=== PATIENT | male | born 1940 | race Caucasian/White ===

== ENCOUNTER 2016-12-28 10:31 | Inpatient (IN) | payer MEDICARE, OTHER ==
[~2016-12-28] VITALS: Ht 177.8 cm; Wt 69.9 kg
[2016-12-28] VITALS (17 sets, daily range): BP systolic 115–152; BP diastolic 47–100
[2016-12-28] MEDS ORDERED: IV SET PRIMARY PUMP SET 1 EA INFUS.SET MC ONE ×4 (10:38→16:57)
[2016-12-28] MEDS ORDERED: MIDAZOLAM HCL 2 MG/2ML VIAL ONE (10:38)
[2016-12-28] MEDS ORDERED: IV NS 0.9% 1,000 ML ONE ×2 (10:38→12:14)
--- NOTE | 2016-12-28 10:40 | NUR ---
BIB [facility] 89 FROM HOME, WORSENING SOB,TRI-PODDING,DIMINISHED BS, ON CPAP ENROUTE. MD AT BS FOR EVAL. PT AAOX3. RT AT BS. VSS. SAFETY AND COMFORT MEASURES PROVIDED. WILL MONITOR.
[2016-12-28] MEDS ORDERED: IV NS 0.9% 1,000 ML IV ONE (10:43)
[2016-12-28] MEDS ORDERED: Magnesium 1GM/D5W 100ML PREMIX 200 ML IV ONE ×2 (10:43→10:49)
[2016-12-28] MEDS ORDERED: methylPREDNISolone SOD SUCC 125 MG/2ML VIAL ONE (10:48)
[2016-12-28] MEDS ORDERED: IPRATROPIUM NEB FS 0.5 MG/2.5 ML AMPUL.NEB ONE (10:50)
[2016-12-28] MEDS ORDERED: ALBUTEROL FS 2.5 MG/3 ML VIAL.NEB ONE (10:50)
[2016-12-28 10:57] LABS: BASOPHILS # (AUTO) 0.2 /CMM (0.0-0.2); BASOPHILS % (AUTO) 1.9 % (0.0-2.0); EOSINOPHILS # (AUTO) 0.1 /CMM (0.0-0.7); EOSINOPHILS % (AUTO) 0.5 % (0.0-6.0); HEMATOCRIT 37 % (39-51); HEMOGLOBIN 12.3 g/dL (13.5-17.5); LYMPHOCYTES % (AUTO) 9.5 % (20.0-44.0); MEAN CORPUSCULAR HEMOGLOBIN 31 PG (26.0-33.0); MEAN CORPUSCULAR HGB CONC 33 g/dl (31.0-36.0); MEAN CORPUSCULAR VOLUME 93 fL (80-96); MONOCYTES # (AUTO) 0.3 /CMM (0.1-1.30); MONOCYTES % (AUTO) 3.3 % (2.0-12.0); NEUTROPHILS # (AUTO) 8.6 /CMM (1.8-8.9); NEUTROPHILS % (AUTO) 84.8 % (43.0-81.0); PLATELET COUNT (AUTO) 226 /CMM (150-450); RDW COEFFICIENT OF VARIATION 18.6 (11.5-15.0); RED BLOOD CELL COUNT(AUTO) 3.98 MIL/uL (4.5-6.0); WHITE BLOOD COUNT (AUTO) 10.2 K/uL (4.3-11.0)
[2016-12-28] MEDS ORDERED: ALBUTEROL FS 2.5 MG/3 ML VIAL.NEB CONTNEB ONE (11:00)
[2016-12-28] MEDS ORDERED: methylPREDNISolone SOD SUCC 125 MG/2ML VIAL IV ONE (11:00)
[2016-12-28] MEDS ORDERED: IPRATROPIUM NEB FS 0.5 MG/2.5 ML AMPUL.NEB NEB ONE (11:00)
[2016-12-28 11:04] LABS: CALCIUM, SERUM 8.5 mg/dL (8.5-10.1); CARBON DIOXIDE 29 mmol/L (21-32); CHLORIDE 105 mmol/L (98-107); GLUCOSE 80 mg/dL (74-106); POTASSIUM 4.6 mmol/L (3.5-5.1); SODIUM SERUM 141 mmol/L (136-145); UREA NITROGEN, BLOOD 22 mg/dL (7-18)
[2016-12-28 11:11] LABS: TROPONIN I < 0.017 ng/mL (0.00-0.056)
--- NOTE | 2016-12-28 11:15 | NUR ---
IV ACCESS STARTED. BLOOD DRAWN FOR LABS. PT MEDICATED ORDERED.
[2016-12-28 11:16] LABS: ALANINE AMINOTRANSFERASE 58 U/L (12-78); ALBUMIN 3.2 g/dL (3.4-5.0); ALKALINE PHOSPHATASE 78 U/L (46-116); ASPARTATE AMINOTRANSFERASE 25 U/L (15-37); B-TYPE NATRIURETIC PEPTIDE 575 PG/ML (0-125); BILIRUBIN,DIRECT 0.1 mg/dL (0.0-0.2); BILIRUBIN,TOTAL 0.5 mg/dL (0.2-1.0); TOTAL PROTEIN, SERUM 6.7 g/dL (6.4-8.2)
[2016-12-28 11:18] LABS: LACTIC ACID 3.2 mmol/L (0.4-2.0)
[2016-12-28] MEDS ORDERED: CT SWABBABLE VALVE TRANS SET 1 EA INFUS.SET MC ONE (11:18)
[2016-12-28] MEDS ORDERED: IOHEXOL-350 100 ML VIAL IV ONE (11:18)
[2016-12-28] MEDS ORDERED: IV NS 0.9% 250 ML IV ONE (11:18)
[2016-12-28 11:30] LABS: ANISOCYTOSIS 2+; EOSINOPHILS % (MANUAL) 2 % (0-4); LYMPHOCYTES % (MANUAL) 21 % (16-48); MONOCYTES % (MANUAL) 4 % (0-11.0); NEUTROPHILS % (MANUAL) 73 (42-76); PLATELET ESTIMATE ADEQUATE
--- NOTE | 2016-12-28 12:40 | NUR ---
Patient is resting comfortably in bed with eyes closed. Easily aroused. VSS
[2016-12-28 13:11] LABS: ABG BASE EXCESS 1.4 mmol/L; ABG OXYGEN SATURATION 98.9 % (92.0-98.5); ABG PCO2 47.9 mmHg (35.0-45.0); ABG PH 7.371 (7.350-7.450); ABG PO2 243.5 mmHg (75.0-100.0); ABG TOTAL HEMOGLOBIN 11.4 G/dL (13.5-18.0); AaDO2 167.9 mmHg; COHb 0.7 % (0.5-1.5); MetHb 0.2 % (0.0-1.5); SITE, ABG Right Radial
--- NOTE | 2016-12-28 13:12 | NUR ---
RT NOTE: ABG RESULTS REPORTED TO . PER DR. FARRIS FI02 TITRATED DOWN TO 40%. PER MD KEEP PATIENT ON BIPAP AND MAINTAIN SP02 ABOVE 94%. CHANGE MADE. PATIENT IS TOLERATING THERAPY WELL AND STATES HE FEELS BETTER. WILL CONTINUE TO MONITOR.
[2016-12-28] MEDS ORDERED: ACETAMINOPHEN 325 MG TABLET PO PRN (13:30)
[2016-12-28] MEDS ORDERED: ONDANSETRON HCL/PF 4 MG/2 ML VIAL IVP PRN (13:30)
[2016-12-28] MEDS ORDERED: MAG HYDROX/AL HYDROX/SIMETH 30 ML UDC PO PRN (13:30)
[2016-12-28] MEDS ORDERED: ZOLPIDEM TARTRATE 5 MG TABLET PO PRN (13:30)
[2016-12-28] MEDS ORDERED: Z GUARD REMEDY 2 OZ OINT TP PRN (13:30)
[2016-12-28 14:06] LABS: INR 1.02 (0.87-1.13); PROTHROMBIN TIME 10.9 SECS (9.5-12.7)
--- NOTE | 2016-12-28 14:38 | NUR ---
REPORT GIVEN TO STEPHEN WHITESIDE FOR ICU ROOM, 254
--- NOTE | 2016-12-28 15:01 | NUR ---
Patient transported to ICU and placed back on BIPAP. Per Dr. Boles ABG needed for patient at this time. Addendum: 12/28/16 at 1507 by USHA GOMEZ RT CORRECTION: PER NO ABG NEEDED AT THIS TIME. ORDER CANCELLED PER MD ORDER.
[2016-12-28] MEDS ORDERED: OXYC5CAP3 PO (15:05)
[2016-12-28] MEDS ORDERED: HYDR-552 PO (15:05)
[2016-12-28] MEDS ORDERED: SIMV10TA6 PO (15:05)
[2016-12-28] MEDS ORDERED: PRED1TAB PO (15:05)
[2016-12-28] MEDS ORDERED: CLOP75TA2 PO (15:05)
[2016-12-28] MEDS ORDERED: CHOL100040 PO (15:05)
[2016-12-28] MEDS: MORPHINE SULFATE INJ 2 MG/ML DISP.SYRIN IV PRN (15:38)
[2016-12-28] MEDS: ALBUTEROL HALF STRENGTH 1.25 MG/3 ML VIAL.NEB NEB SCH ×3 (16:05→23:16)
[2016-12-28] MEDS: IPRATROPIUM NEB FS 0.5 MG/2.5 ML AMPUL.NEB NEB SCH ×3 (16:05→23:16)
[2016-12-28] MEDS: ACETYLCYSTEINE 10% SOLN 400 MG/4 ML VIAL NEB SCH ×2 (16:05→23:16)
--- NOTE | 2016-12-28 16:40 | NUR ---
ICU/RN-RECEIVED PT. FROM ASSEMBLED WOOD PRODUCTS REPAIRERSTEVO LOUISE, AWAKE, ALERT ORIENTED X4. GABONESE AND UZBEK SPEAKING W/ LIMITED LIBYAN.BREATHING COMES EASY, ON BIPAP.SATS.-99%, NOT IN ANY DISTRESS. EKG SR W/ HR-84/MIN. BP-132/73. PT. IS NPO. WILL START ALL SCHEDULED MEDS. DULCE. NO SKIN BREAKDOWN NOTED.DENIES PAIN OR DISCOMFORT AT THIS TIME.AFEBRILE.
[2016-12-28] MEDS ORDERED: SECONDARY IV SET 1 EA INFUS.SET MC ONE (16:58)
[2016-12-28] MEDS: methylPREDNISolone SOD SUCC 125 MG/2ML VIAL IV SCH ×2 (17:04→21:22)
[2016-12-28] MEDS: LEVOFLOXACIN 500 MG /D5W 100ML 100 ML IV SCH (17:05)
[2016-12-28] MEDS: IV D5/0.45 NACL 1,000 ML IV PRN (17:05)
[2016-12-28] MEDS: DOCUSATE SODIUM 100 MG CAPSULE PO SCH (17:08)
[2016-12-28] MEDS: CLOPIDOGREL BISULFATE 75 MG TABLET PO SCH (20:00)
--- NOTE | 2016-12-28 20:07 | NUR ---
PT WANTED TO TAKE A BRAKE OFF BIPAP. PT TAKEN OFF BIPAP PLACED ON 3L NC. RN AWARE. PT O2 SAT IS 99% NO DISTRESS. WILL CONTINUE TO MONITOR.
--- NOTE | 2016-12-28 20:26 | NUR ---
received pt from day shift, a/o x4, follows commands, SR, off of bipap since 20:00, on NC at 3L sat 98% no SOB verbalized, NPO, urinates in urinal, v/s stable, no pain, pt turns and repositions by himself.
[2016-12-28] MEDS: SIMVASTATIN 20 MG TABLET PO SCH (21:22)
[2016-12-28 23:39] LABS: APPEARANCE,URINE CLEAR (CLEAR); BILIRUBIN,URINE NEGATIVE (NEGATIVE); BLOOD, URINE NEGATIVE Ery/uL (NEGATIVE); COLOR,URINE YELLOW (YELLOW); KETONES,URINE NEGATIVE (NEGATIVE); LEUKOCYTE ESTERASE ,URINE NEGATIVE (NEGATIVE); NITRITE, URINE NEGATIVE (NEGATIVE); PROTEIN,URINE NEGATIVE (NEGATIVE); UGLUCOSE NEGATIVE (NEGATIVE); UROBILINOGEN,URINE 0.2 EU/dL (0.2)
[2016-12-29] VITALS (24 sets, daily range): BP systolic 108–150; BP diastolic 57–88
--- NOTE | 2016-12-29 00:28 | NUR ---
pt is resting in the bed, on NC at 3L, sat well, v/s stable, no pain.
[2016-12-29] MEDS: ALBUTEROL HALF STRENGTH 1.25 MG/3 ML VIAL.NEB NEB SCH ×6 (03:15→23:17)
[2016-12-29] MEDS: IPRATROPIUM NEB FS 0.5 MG/2.5 ML AMPUL.NEB NEB SCH ×6 (03:15→23:17)
--- NOTE | 2016-12-29 04:21 | NUR ---
pt is resting in the bed, no acute distress overnight, on NC at 3L, sat well, v/s stable, no pain, pt cleaned and changed.
[2016-12-29] MEDS: methylPREDNISolone SOD SUCC 125 MG/2ML VIAL IV SCH ×3 (04:31→21:20)
[2016-12-29] MEDS: MORPHINE SULFATE INJ 2 MG/ML DISP.SYRIN IV PRN ×2 (04:38→21:34)
[2016-12-29 05:22] LABS: EOSINOPHILS % (AUTO) 0.1 % (0.0-6.0); HEMATOCRIT 33 % (39-51); HEMOGLOBIN 10.7 g/dL (13.5-17.5); LYMPHOCYTES # (AUTO) 0.3 /CMM (0.8-4.8); LYMPHOCYTES % (AUTO) 5.1 % (20.0-44.0); MEAN CORPUSCULAR HEMOGLOBIN 31 PG (26.0-33.0); MEAN CORPUSCULAR HGB CONC 33 g/dl (31.0-36.0); MEAN CORPUSCULAR VOLUME 95 fL (80-96); MONOCYTES # (AUTO) 0.2 /CMM (0.1-1.30); MONOCYTES % (AUTO) 2.5 % (2.0-12.0); NEUTROPHILS # (AUTO) 5.7 /CMM (1.8-8.9); NEUTROPHILS % (AUTO) 92.3 % (43.0-81.0); PLATELET COUNT (AUTO) 231 /CMM (150-450); RDW COEFFICIENT OF VARIATION 20.2 (11.5-15.0); RED BLOOD CELL COUNT(AUTO) 3.47 MIL/uL (4.5-6.0); RETICULOCYTE COUNT 2.5 % (0.6-2.5); WHITE BLOOD COUNT (AUTO) 6.1 K/uL (4.3-11.0)
[2016-12-29 05:47] LABS: INR 1.05 (0.87-1.13); PROTHROMBIN TIME 11.3 SECS (9.5-12.7)
[2016-12-29 05:50] LABS: THYROID STIMULATING HORMONE 0.197 uIU/mL (0.358-3.74)
[2016-12-29 05:54] LABS: ALBUMIN 2.7 g/dL (3.4-5.0); BILIRUBIN,TOTAL 0.6 mg/dL (0.2-1.0); CALCIUM, SERUM 7.7 mg/dL (8.5-10.1); CREATININE 0.9 mg/dL (0.6-1.3); MAGNESIUM 2.3 mg/dL (1.8-2.4); PHOSPHORUS 4.3 mg/dL (2.5-4.9); POTASSIUM 4.6 mmol/L (3.5-5.1); TOTAL PROTEIN, SERUM 5.8 g/dL (6.4-8.2)
[2016-12-29 06:07] LABS: BAND % (MANUAL) 6 % (0.0-5.0); LYMPHOCYTES % (MANUAL) 4 % (16-48); MONOCYTES % (MANUAL) 8 % (0-11.0); NEUTROPHILS % (MANUAL) 82 (42-76)
[2016-12-29 06:08] LABS: ANISOCYTOSIS 2+; PLATELET ESTIMATE ADEQUATE
[2016-12-29] MEDS: IV D5/0.45 NACL 1,000 ML IV PRN (07:26)
[2016-12-29] MEDS: ACETYLCYSTEINE 10% SOLN 400 MG/4 ML VIAL NEB SCH ×3 (07:56→23:17)
[2016-12-29] MEDS: CLOPIDOGREL BISULFATE 75 MG TABLET PO SCH (08:29)
[2016-12-29] MEDS: DOCUSATE SODIUM 100 MG CAPSULE PO SCH ×2 (08:29→16:25)
[2016-12-29] MEDS: CHOLECALCIFEROL (VITAMIN D 3) 400 UNIT TABLET PO SCH (08:29)
[2016-12-29] MEDS: PANTOPRAZOLE 40 MG VIAL IV SCH (08:29)
--- NOTE | 2016-12-29 09:15 | NUR ---
DR. MUKHERJEE ON THE UNIT TO EVAL PT. ORDERS ONE TIME DOSE OF LASIX 40MG DUE AFTER LUNG AUSCULTATION. ORDERS TO DC IVF AND START ON DIET, PT PASSED SWALLOW EVAL, MECHANICAL SOFT RECOMMENDED BY SPEECH THERAPIST BECAUSE HE HAS DENTURES. DR. MUKHERJEE STATES TO KEEP IN ICU FOR NOW.
[2016-12-29 09:16] LABS: ABG OXYGEN SATURATION 93.9 % (92.0-98.5); ABG PCO2 40.5 mmHg (35.0-45.0); ABG PO2 73.5 mmHg (75.0-100.0); ABG TOTAL HEMOGLOBIN 11.1 G/dL (13.5-18.0); AaDO2 78.4 mmHg; COHb 1.2 % (0.5-1.5); MetHb 0.3 % (0.0-1.5); O2Hb 92.5 % (94.0-97.0); SITE, ABG Right Radial; VENT MODE, BG NASAL CANNULA
[2016-12-29] MEDS ORDERED: IV NS 0.9% 250 ML IV ONE (09:38)
[2016-12-29] MEDS ORDERED: FUROSEMIDE 40 MG/4 ML VIAL IV ONE (10:00)
--- NOTE | 2016-12-29 10:28 | NUR ---
GET MEDICAL RECORDS FROM [facility] (ONCOLOGY) DR. MANZO ON THE UNIT ORDERS TO GET RECORDS FROM 'S ONCOLOGIST [facility] [phone] Addendum: 12/29/16 at 1039 by RED HARLEY RN CALLED THAT NUMBER AND SPOKE WITH DROSOPHERE OPERATOR GAVE THEM THE FAX NUMBER AND THEY STATE THEY WILL SEND RECORDS REGARDING ONCOLOGY. Addendum: 12/29/16 at 1144 by RED HARLEY RN CALLED THE NUMBER AGAIN UNABLE TO SPEAK TO ANYONE ON THE PHONE, LEFT A MESSAGE TO FOLLOW UP WITH MEDICAL RECORDS FOR ONCOLOGY. Addendum: 12/29/16 at 1635 by RED HARLEY RN MEDICAL RECORDS FROM DR. VALERIE COYLE OFFICE RECVD VIA FAX. PLACED IN THE CHART WITH A STICKY NOTE ON IT.
[2016-12-29] MEDS: LEVOFLOXACIN 500 MG /D5W 100ML 100 ML IV SCH (15:45)
--- NOTE | 2016-12-29 20:28 | NUR ---
pt received from day shift, a/o x4, SR, on 3L 02 sat well, no edema, tolerates diet, good urine output, v/s stable, no pain, pt turns and repositions by himself.
[2016-12-29] MEDS: SIMVASTATIN 20 MG TABLET PO SCH (21:20)
[2016-12-30] VITALS (18 sets, daily range): BP systolic 121–164; BP diastolic 70–99
--- NOTE | 2016-12-30 00:39 | NUR ---
pt is resting in the bed, v/s stable, no pain.
[2016-12-30] MEDS: IPRATROPIUM NEB FS 0.5 MG/2.5 ML AMPUL.NEB NEB SCH ×6 (02:22→22:56)
[2016-12-30] MEDS: ALBUTEROL HALF STRENGTH 1.25 MG/3 ML VIAL.NEB NEB SCH ×6 (02:22→22:56)
--- NOTE | 2016-12-30 04:31 | NUR ---
pt is resting in the bed, no acute distress overnight, sat well, v/s stable, no pain, pt cleaned and changed.
[2016-12-30] MEDS: methylPREDNISolone SOD SUCC 125 MG/2ML VIAL IV SCH (04:35)
[2016-12-30 05:25] LABS: EOSINOPHILS % (AUTO) 0.1 % (0.0-6.0); HEMATOCRIT 33 % (39-51); HEMOGLOBIN 10.7 g/dL (13.5-17.5); LYMPHOCYTES # (AUTO) 0.3 /CMM (0.8-4.8); LYMPHOCYTES % (AUTO) 3.8 % (20.0-44.0); MEAN CORPUSCULAR HEMOGLOBIN 31 PG (26.0-33.0); MEAN CORPUSCULAR HGB CONC 33 g/dl (31.0-36.0); MEAN CORPUSCULAR VOLUME 93 fL (80-96); MONOCYTES # (AUTO) 0.5 /CMM (0.1-1.30); MONOCYTES % (AUTO) 5.4 % (2.0-12.0); NEUTROPHILS # (AUTO) 7.7 /CMM (1.8-8.9); NEUTROPHILS % (AUTO) 90.7 % (43.0-81.0); PLATELET COUNT (AUTO) 288 /CMM (150-450); WHITE BLOOD COUNT (AUTO) 8.5 K/uL (4.3-11.0)
[2016-12-30 05:42] LABS: CALCIUM, SERUM 7.8 mg/dL (8.5-10.1); CREATININE 0.9 mg/dL (0.6-1.3); MAGNESIUM 2.3 mg/dL (1.8-2.4); PHOSPHORUS 3.2 mg/dL (2.5-4.9); POTASSIUM 4.3 mmol/L (3.5-5.1)
[2016-12-30] MEDS: ACETYLCYSTEINE 10% SOLN 400 MG/4 ML VIAL NEB SCH ×3 (07:10→22:56)
--- NOTE | 2016-12-30 08:00 | NUR ---
STUDENT SPECIALIST NOTE: RECEIVED PATIENT ALERT AND ORIENTED X3, MAURITIAN SPEAKING ONLY. COMMUNICATED WITH PATIENT IN MAURITIAN. ON 3L O2 VIA NC, NO RESPIRATORY DISTRESS NOTED. NOTED TO BE SR ON TELE MONITOR. PATIENT ABLE TO USE URINAL AND GET UP TO COMMODE. SKIN NOTED TO BE INTACT. LFA 20G AND MCKAYLA 20G PATENT AND INTACT HL, NO SWELLING OR REDNESS NOTED. PATIENT ABLE TO REPOSITION SELF. SAFETY MEASURES OBSERVED. CALL LIGHT PLACED WITHIN REACH. FALL PRECAUTIONS MAINTAINED. ONGOING MONITORING.
[2016-12-30] MEDS: PANTOPRAZOLE 40 MG VIAL IV SCH (08:25)
[2016-12-30] MEDS: CLOPIDOGREL BISULFATE 75 MG TABLET PO SCH (08:26)
[2016-12-30] MEDS: CHOLECALCIFEROL (VITAMIN D 3) 400 UNIT TABLET PO SCH (08:26)
[2016-12-30] MEDS: DOCUSATE SODIUM 100 MG CAPSULE PO SCH ×2 (08:26→16:47)
--- NOTE | 2016-12-30 11:00 | NUR ---
SPEED OPERATOR NOTE: PATIENT ABLE TO GET UP TO COMMODE HOWEVER NOTED WITH SOB ON EXERTION. PER DR. MUKHERJEE, REQUEST PLACED FOR DAILY PHYSICAL THERAPY. CALL MADE TO PT AND EVAL DONE AND PATIENT FULLY ABLE TO MOVE HOWEVER IS SOB ON EXERTION. ONGOING MONITORING.
[2016-12-30] MEDS: predniSONE 20 MG TABLET PO SCH (11:12)
--- NOTE | 2016-12-30 15:50 | NUR ---
MINK RANCHER NOTE: PATIENT MADE AWARE THAT HE WILL BE TRANSFERRED TO [facility] ROOM 200, CALL MADE TO STEVO PINEDA AND REPORT GIVEN, PATIENT TRANSFERRED TO ROOM 200 VIA WHEEL CHAIR. ON 3 02 VIA MO, NO DISTRESS NOTED. PATIENT IN STABLE CONDITION.
[2016-12-30] MEDS ORDERED: SECONDARY IV SET 1 EA INFUS.SET MC ONE (16:38)
[2016-12-30] MEDS ORDERED: IV SET PRIMARY PUMP SET 1 EA INFUS.SET MC ONE (16:38)
[2016-12-30] MEDS ORDERED: IV NS 0.9% 250 ML IV ONE (16:39)
[2016-12-30] MEDS: LEVOFLOXACIN 500 MG /D5W 100ML 100 ML IV SCH (16:47)
--- NOTE | 2016-12-30 19:50 | NUR ---
MS RN INITIAL NOTES: RECEIVED REPORT FROM CORBIN WHITESIDE. PT TRANSFERRED FROM ICU, PT A/O X3 OMANI SPEAKING, AT BED SIDE, ON 2L VIA NC, RESPIRATION EVEN AND UNLABORED, DENIES ANY SOB AT THIS TIME, C/O PAIN ON HIS LUNG AREA STATED BY RT AND , AND LEFT ARM, PER PT HE HAVE LUNG CANCER THAT'S WHY HE'S FEELING PAIN ON THAT PART. PT HAS RFA IV ACCESS AND LFA IV ACCESS, PATENT AND FLUSHING WELL, BOTH ON HL. BLE OFFLOADED. SAFETY PRECAUTIONS FOR FALL INITIATED, CALL LIGHT IN REACH. WILL CONTINUE TO MONITOR.
[2016-12-30] MEDS: MORPHINE SULFATE INJ 2 MG/ML DISP.SYRIN IV PRN (19:59)
--- NOTE | 2016-12-30 19:59 | NUR ---
ms rn notes: pt c/o left arm and chest pain 04/27 requesting for medication, rt at bed side translated for pt, prn morphine 2mg ivp administered to the pt at this time, vs taken and recorded, will continue to monitor and reassess
[2016-12-30] MEDS: SIMVASTATIN 20 MG TABLET PO SCH (21:01)
[2016-12-31] MEDS: ALBUTEROL HALF STRENGTH 1.25 MG/3 ML VIAL.NEB NEB SCH ×3 (03:10→10:05)
[2016-12-31] MEDS: IPRATROPIUM NEB FS 0.5 MG/2.5 ML AMPUL.NEB NEB SCH ×6 (03:10→23:16)
--- NOTE | 2016-12-31 06:20 | NUR ---
ms rn notes: pt noted to be tachypneic, noted wheezing, even with out stethoscope, vs taken , pt 95% on 2l, rr 23, contacted rt to give breathing treatment
--- NOTE | 2016-12-31 06:35 | NUR ---
MS RN NOTES: INFORMED RT TO GIVE THE BREATHING TREATMENT, PT HAS VENTOLIN, ATROVENT, AND MUCOMYST SCHEDULED
[2016-12-31 06:45] VITALS: BP 150/79
--- NOTE | 2016-12-31 06:45 | NUR ---
MS RN NOTES: CONTACTED GULSHAN LOCKWOOD, RELAYED PT'S ASSESSMENT, VS TAKEN, PER MD TO DO STAT ABG, PUT PT ON BIPAP 15/5 FOR 4HRS, ASKED IF HE WOULD LIKE TO TRANSFER THE PT, MD STATED "NO, JUST KEEP HIM THERE FOR NOW, THEN REASSESS AFTER 2HRS".
--- NOTE | 2016-12-31 06:45 | NUR ---
MS RN NOTES: CONTACTED GULSHAN LOCKWOOD, RELAYED PT'S ASSESSMENT, VS TAKEN, PER MD TO DO STAT ABG, WILL RELAY RESULT,
--- NOTE | 2016-12-31 06:46 | NUR ---
MS RN NOTES: CONTACTED RT, INFORMED ABOUT STAT ABG, STATED HE WILL COME UP ANY MINUTE
--- NOTE | 2016-12-31 06:47 | NUR ---
MS RN NOTES: INFORMED NURSING SUP REGARDING PT TO BE PLACE ON BIPAP, PER NURSING SUP WONG, OBTAIN ABG FIRST THEN CALL THE MD FOR THE RESULT, CONTACTED RT TO OBTAIN ABG STAT
[2016-12-31 06:49] LABS: EOSINOPHILS % (AUTO) 0.1 % (0.0-6.0); HEMATOCRIT 34 % (39-51); HEMOGLOBIN 11.2 g/dL (13.5-17.5); LYMPHOCYTES # (AUTO) 0.5 /CMM (0.8-4.8); LYMPHOCYTES % (AUTO) 4.7 % (20.0-44.0); MEAN CORPUSCULAR HEMOGLOBIN 31 PG (26.0-33.0); MEAN CORPUSCULAR HGB CONC 33 g/dl (31.0-36.0); MEAN CORPUSCULAR VOLUME 94 fL (80-96); MONOCYTES # (AUTO) 0.8 /CMM (0.1-1.30); MONOCYTES % (AUTO) 6.8 % (2.0-12.0); NEUTROPHILS # (AUTO) 9.8 /CMM (1.8-8.9); NEUTROPHILS % (AUTO) 88.4 % (43.0-81.0); PLATELET COUNT (AUTO) 337 /CMM (150-450); RDW COEFFICIENT OF VARIATION 20.5 (11.5-15.0); RED BLOOD CELL COUNT(AUTO) 3.65 MIL/uL (4.5-6.0); WHITE BLOOD COUNT (AUTO) 11.1 K/uL (4.3-11.0)
--- NOTE | 2016-12-31 07:00 | NUR ---
MS RN NOTES: CONTACTED RT AGAIN AT [phone] TALKED TO LEAD RT, INFORMED ABOUT STAT ABG AND BREATHING TREATMENT, HE STATED HE'S GOING TO SEND THE ASSIGNED RT, PT NOW MORE CALM, ON 2L VIA NC 95%, VS STABLE, LATEST RR 20, RT CAME TO GIVE TREATMENT AND WILL DO ABG
[2016-12-31] MEDS: ACETYLCYSTEINE 10% SOLN 400 MG/4 ML VIAL NEB SCH ×3 (07:05→23:17)
--- NOTE | 2016-12-31 07:10 | NUR ---
MS RN NOTES: SERAFIN RT CAME TOGETHER WITH ANOTHER RT, HE TALKED TO THE PT, RT CAN SPEAK URUGUAYAN, EXPLAIN TO THE PT ABOUT BIPAP AND THE PT REFUSING, PT MORE CALM RIGHT NOW, 98% ON 2L VIA NC, VS STABLE, STILL WAITING FOR THE RESULT OF ABG
[2016-12-31 07:11] LABS: CALCIUM, SERUM 7.7 mg/dL (8.5-10.1); CREATININE 0.8 mg/dL (0.6-1.3); MAGNESIUM 2.4 mg/dL (1.8-2.4); PHOSPHORUS 2.3 mg/dL (2.5-4.9); POTASSIUM 4.2 mmol/L (3.5-5.1)
--- NOTE | 2016-12-31 07:27 | NUR ---
RT PATIENT HAD SOB, AFTER BREATHING TREATMENT SOB WAS RELIEF. REFUSED BIPAP AND IS O2 SAT IS 99% HR 80 BREATH SOUNDS CLEAR
--- NOTE | 2016-12-31 07:30 | NUR ---
MS RN AM NOTES: PT ON BED, AWAKE, AO X 3, SYRIAC, CURRENTLY HAVING BREATHING TREATMENT, ON 2L O2 NASAL CANULA, RESPIRATORY THERAPIST AT BEDSIDE. HAD EPISODE OF WHEEZING AND SOB, DR GULSHAN LOCKWOOD NOTIFIED BY TRANSACTION ADVISORY SERVICES MANAGER WITH ORDER FOR BIPAP AT STANDBY AND ABG. DENIES PAIN, RT FA G20 AND LEFT FA G20 HL, FLUSHES WELL AND BOTH SITES CLEAR. AMBULATORY. SAFETY PRECAUTIONS IN PLACE. CALL LIGHT WITHIN REACH, WILL CONT TO MONITOR.
[2016-12-31 07:41] LABS: ABG BASE EXCESS 2.3 mmol/L; ABG OXYGEN SATURATION 92.3 % (92.0-98.5); ABG PCO2 40.8 mmHg (35.0-45.0); ABG PH 7.434 (7.350-7.450); ABG PO2 67.2 mmHg (75.0-100.0); ABG TOTAL HEMOGLOBIN 12.5 G/dL (13.5-18.0); AaDO2 33.7 mmHg; COHb 1.2 % (0.5-1.5); O2Hb 91.2 % (94.0-97.0); SITE, ABG Right Brachial; VENT MODE, BG ROOM AIR
--- NOTE | 2016-12-31 07:58 | NUR ---
MS RN NOTES: TALKED TO DR FREED RELAYED PT'S ABG RESULT, PT CURRENTLY ON 2L VIA NC , SPO2 95%, GIVEN BREATHING TREATMENT, PER MD NO NEED TO PUT BIPAP, RELAYED TO DAY RN.
--- NOTE | 2016-12-31 07:59 | NUR ---
MS RN CLOSING NOTES: PT ON BED, AWAKE, REMAINS ON 2L VIA NC, DENIES ANY SOB OR DISCOMFORT AT THIS TIME, IV ACCESS REMAINS PATENT AND FLUSHING WELL, ON HL. VS REMAINS STABLE, NEEDS ATTENDED. SAFETY PRECAUTION FOR FALL REMAINS ENGAGED, CALL LIGHT IN REACH, WILL ENDORSE TO DAY RN FOR RENATO.
[2016-12-31 08:00] VITALS: BP 153/90
[2016-12-31] MEDS: predniSONE 20 MG TABLET PO SCH (08:43)
[2016-12-31] MEDS: CHOLECALCIFEROL (VITAMIN D 3) 400 UNIT TABLET PO SCH (08:43)
[2016-12-31] MEDS: PANTOPRAZOLE 40 MG VIAL IV SCH (08:43)
[2016-12-31] MEDS: CLOPIDOGREL BISULFATE 75 MG TABLET PO SCH (08:44)
[2016-12-31] MEDS: DOCUSATE SODIUM 100 MG CAPSULE PO SCH ×2 (08:44→16:17)
--- NOTE | 2016-12-31 09:30 | NUR ---
MS RN NOTES ADMINISTERED DUE MEDS.
--- NOTE | 2016-12-31 10:00 | NUR ---
MS RN NOTES DR. MARTINEZ AT BEDSIDE EARLIER. RELAYED ABOUT PT HAVING LABORED BREATHING EARLIER AND RELIEVED AFTER BREATHING TREATMENT. PER MD, TO INCREASE ALBUTEROL DOSE TO 2.5, INCREASE O2 TO 4L AND CXR. STANDBY TRANSFER TO ICU FOR BIPAP USE IF CONDITION DOES NOT IMPROVE. NURSING SECTIONIZER AWARE.
[2016-12-31] MEDS: ALBUTEROL FS 2.5 MG/0.5 ML VIAL.NEB NEB SCH ×4 (10:03→23:16)
[2016-12-31] MEDS: ENOXAPARIN SODIUM 40 MG/0.4 ML DISP.SYRIN SQ SCH (10:18)
[2016-12-31] MEDS: methylPREDNISolone SOD SUCC 125 MG/2ML VIAL IV SCH ×3 (10:19→16:17)
--- NOTE | 2016-12-31 11:56 | NUR ---
MS RN NOTES DR. ESPARZA AT BEDSIDE EARLIER.
[2016-12-31] MEDS: MAGNESIUM HYDROXIDE 30 ML UDC PO PRN (12:52)
--- NOTE | 2016-12-31 13:45 | NUR ---
MS RN NOTES PATIENT ASSISTED TO BSC.
[2016-12-31] MEDS ORDERED: K PHOS NEUTRAL 250 MG TABLET PO ONE (14:00)
[2016-12-31] MEDS: LEVOFLOXACIN 500 MG /D5W 100ML 100 ML IV SCH (15:45)
--- NOTE | 2016-12-31 15:45 | NUR ---
MS RN NOTES STARTED LEVSUBHAUIN IV.
[2016-12-31 16:00] VITALS: BP 158/81
[2016-12-31 18:01] VITALS: BP 158/81
--- NOTE | 2016-12-31 18:20 | NUR ---
MS RN CLOSING NOTES: PT RESTING IN BED, AWAKE, AO X 3, KENYAN, ON 4L O2 NASAL CANULA, NAD, NO SOB, RESPIRATION UNLABORED, DENIES PAIN, RT FA G20 AND LEFT FA G20 HL, FLUSHES WELL AND BOTH SITES CLEAR. AMBULATORY, BUT NEEDS O2 TO GO TO BATHROOM. SAFETY PRECAUTIONS IN PLACE. CALL LIGHT WITHIN REACH, ALL NEEDS MET. WILL ENDORSE TO NEXT SHIFT FOR RENATO.
--- NOTE | 2016-12-31 19:30 | NUR ---
ms rn initial notes: received report from nessa burden. pt on bed, awake, a/o x3, on 4l via nc, respiration even and unlabored, denies sob, denies any pain discomfort at this time, at bed side. pt able to use own cane to go to the commode, ambulates with assistance. iv access rfa and lfa both patent, clear and flushing well, on hl. safety precautions for fall initiated, call light in reach, will continue to monitor.
[2016-12-31 20:00] VITALS: BP 137/76
--- NOTE | 2016-12-31 20:13 | NUR ---
ms rn notes: pt's , juan would like to talk to dr velasco in am, left a phone number, notes attached to chart, also will relay to next shift rn regarding the message
[2016-12-31] MEDS: SIMVASTATIN 20 MG TABLET PO SCH (22:07)
[2017-01-01] MEDS: IPRATROPIUM NEB FS 0.5 MG/2.5 ML AMPUL.NEB NEB SCH ×6 (03:30→22:48)
[2017-01-01] MEDS: ALBUTEROL FS 2.5 MG/0.5 ML VIAL.NEB NEB SCH ×4 (03:30→22:48)
--- NOTE | 2017-01-01 06:46 | NUR ---
MS RN CLOSING NOTES: PT ON BED, AWAKE, A/O X3, REMAINS ON 4L VIA NC SPO2 98%, DENIES ANY SOB OR DISCOMFORT AT THIS TIME, IV ACCESS REMAINS PATENT AND FLUSHING WELL, ON HL. PT ABLE TO USE THE URINAL AND BED SIDE COMMODE, USES CANE AND CAN AMBULATES WITH ASSISTANCE. PT'S WOULD LIKE TO TALK TO DR MARTINEZ. VS REMAINS STABLE, NEEDS ATTENDED. SAFETY PRECAUTION FOR FALL REMAINS ENGAGED, CALL LIGHT IN REACH, WILL ENDORSE TO DAY RN FOR RENATO.
[2017-01-01 07:17] LABS: CALCIUM, SERUM 7.7 mg/dL (8.5-10.1); CREATININE 0.8 mg/dL (0.6-1.3); PHOSPHORUS 2.4 mg/dL (2.5-4.9); POTASSIUM 4.2 mmol/L (3.5-5.1)
--- NOTE | 2017-01-01 07:30 | NUR ---
MS RN AM NOTES: PT ASLEEP, RESPONDS TO NAME AND TOUCH, AO X 3, CYMRO, ON 4L O2 NASAL CANULA, NAD, NO SOB, RESPIRATION UNLABORED, DENIES PAIN, RT FA G20 FLUSHES WELL, SITE CLEAR, LEFT FA G20 HL, LEAKING, WILL REMOVE. CARDIAC DIET. AMBULATORY, BUT NEEDS O2 TO GO TO BATHROOM. SAFETY PRECAUTIONS IN PLACE. CALL LIGHT WITHIN REACH, WILL CONT TO MONITOR.
[2017-01-01] MEDS: ACETYLCYSTEINE 10% SOLN 400 MG/4 ML VIAL NEB SCH ×3 (07:38→22:48)
[2017-01-01] MEDS: ALBUTEROL HALF STRENGTH 1.25 MG/3 ML VIAL.NEB NEB SCH ×2 (07:38→12:04)
[2017-01-01 08:00] VITALS: BP 120/71
[2017-01-01] MEDS: PANTOPRAZOLE 40 MG VIAL IV SCH (08:54)
[2017-01-01] MEDS: DOCUSATE SODIUM 100 MG CAPSULE PO SCH ×2 (08:54→16:13)
[2017-01-01] MEDS: CLOPIDOGREL BISULFATE 75 MG TABLET PO SCH (08:54)
[2017-01-01] MEDS: CHOLECALCIFEROL (VITAMIN D 3) 400 UNIT TABLET PO SCH (08:54)
[2017-01-01] MEDS: methylPREDNISolone SOD SUCC 125 MG/2ML VIAL IV SCH (08:54)
[2017-01-01] MEDS: ENOXAPARIN SODIUM 40 MG/0.4 ML DISP.SYRIN SQ SCH (08:55)
--- NOTE | 2017-01-01 09:30 | NUR ---
MS RN NOTES ADMINISTERED DUE MEDS.
[2017-01-01] MEDS ORDERED: POTASSIUM PHOSPHATE MM 15 MMOL in IV D5W 250 ML IV SCH (10:00)
[2017-01-01] MEDS ORDERED: SECONDARY IV SET 1 EA INFUS.SET MC ONE (11:14)
[2017-01-01] MEDS: POTASSIUM PHOSPHATE MM 7.5 MMOL in IV D5W 100 ML IV SCH ×2 (11:25→14:07)
--- NOTE | 2017-01-01 11:25 | NUR ---
MS RN NOTES DR. ESPARZA AT BEDSIDE EARLIER. NEW ORDER TO CHANGE SOLUMEDROL IV TO DAILY. DR. MARTINEZ AT BEDSIDE EARLIER. NEW ORDER FOR POTASSIUM PHOSPHATE IV. STARTED POTASSIUM PHOSPHATE IV BAG #1.
[2017-01-01] MEDS ORDERED: methylPREDNISolone SOD SUCC 125 MG/2ML VIAL IV SCH (12:00)
--- NOTE | 2017-01-01 14:07 | NUR ---
MS RN NOTES STARTED POTASSIUM PHOSPHATE IV BAG #2.
[2017-01-01] MEDS: HYDROCODONE/APAP 5/325MG 1 EACH TABLET PO PRN (14:45)
[2017-01-01 16:00] VITALS: BP 121/78
[2017-01-01] MEDS: LEVOFLOXACIN 500 MG /D5W 100ML 100 ML IV SCH (16:14)
--- NOTE | 2017-01-01 16:27 | NUR ---
MS RN NOTES STARTED LEVSUBHAUIN IV.
--- NOTE | 2017-01-01 18:16 | NUR ---
MS RN CLOSING NOTES: PT RESTING IN BED, AWAKE, AO X 3, ITALIAN, ON 4L O2 NASAL CANULA, NAD, NO SOB, RESPIRATION UNLABORED, DENIES PAIN, RT FA G22, FLUSHES WELL, SITE CLEAR. AMBULATORY, BUT NEEDS O2 TO GO TO BATHROOM. SAFETY PRECAUTIONS IN PLACE. CALL LIGHT WITHIN REACH, ALL NEEDS MET. WILL ENDORSE TO NEXT SHIFT FOR RENATO.
--- NOTE | 2017-01-01 19:30 | NUR ---
MS RN NOTES RECEIVED ON BED ON HIGH FOWLERS POSITION,RT AT BEDSIDE ADMINISTERING BREATHING TREATMENT SCHEDULED.FAMILY MEMBERS AT BEDSIDE.O2 IN USED AT 4L/NC TO KEEP O2 SAT ABOVE 90%.SALINE LOCK RIGHT FA INTACT AND PATENT.CALL LIGHT IN REACH,NEEDS ANTICIPATED.
[2017-01-01 20:00] VITALS: BP 137/74
[2017-01-01] MEDS: SIMVASTATIN 20 MG TABLET PO SCH (21:47)
--- NOTE | 2017-01-01 22:00 | NUR ---
MS RN NOTES DUE PO MEDS ADMINISTERED SCHEDULED.
--- NOTE | 2017-01-01 23:30 | NUR ---
MS RN NOTES RT AT BEDSIDE ADMINISTERING BREATHING TX SCHEDULED.
[2017-01-02] VITALS (53 sets, daily range): BP systolic 67–195; BP diastolic 35–101
--- NOTE | 2017-01-02 01:10 | NUR ---
MS RN NOTES PER JAVA ARCHITECT,PATIENT SIT UP AT EDGE OF BED AND PEE VIA URINAL. SOON HE GET BACK TO BED,HE DEVELOP SHORTNESS OF BREATH.RT WAS PAGE AND CAME,GAVE EXTRA BREATHING TREATMENT OF ALBUTEROL AND SANTIAGO,NURSING MONEY LAUNDERING INVESTIGATOR AT BEDSIDE,SEEN PATIENT AND CALLED ICU NURSE TO EVALUATE PATIENT WELL PLUS PATIENT SPEAK MOHAWK ONLY.
[2017-01-02] MEDS: MORPHINE SULFATE INJ 2 MG/ML DISP.SYRIN IV PRN ×3 (01:25→14:51)
--- NOTE | 2017-01-02 01:25 | NUR ---
MS RN NOTES C/O PAIN ON LEFT LOWER BACK,MEDICATED WITH MORPHINE 2MG IV FOR PAIN 8/10 ON PAIN SCALE.WILL MONITOR FOR RELIEF.
[2017-01-02] MEDS ORDERED: ALBUTEROL FS 2.5 MG/3 ML VIAL.NEB NEB PRN (01:30)
[2017-01-02] MEDS ORDERED: IPRATROPIUM NEB FS 0.5 MG/2.5 ML AMPUL.NEB NEB PRN (01:30)
--- NOTE | 2017-01-02 01:30 | NUR ---
MS RN NURSE ED ICU NURSE CAME AND EVALUATE PATIENT,WITH ORDER FOR STAT ABG THIS TIME,RESULT WAS WITH IN NORMAL.
[2017-01-02 01:33] LABS: ABG BASE EXCESS 3.8 mmol/L; ABG OXYGEN SATURATION 98.6 % (92.0-98.5); ABG PCO2 49.4 mmHg (35.0-45.0); ABG PH 7.394 (7.350-7.450); ABG PO2 294.8 mmHg (75.0-100.0); ABG TOTAL HEMOGLOBIN 12.5 G/dL (13.5-18.0); AaDO2 368.8 mmHg; COHb 0.1 % (0.5-1.5); MetHb 0.6 % (0.0-1.5); O2Hb 97.9 % (94.0-97.0); SITE, ABG Left Radial; VENT MODE, BG NON REBREATHER
[2017-01-02] MEDS: ALBUTEROL FS 2.5 MG/0.5 ML VIAL.NEB NEB SCH ×6 (02:12→23:33)
[2017-01-02] MEDS: IPRATROPIUM NEB FS 0.5 MG/2.5 ML AMPUL.NEB NEB SCH ×6 (02:12→23:33)
--- NOTE | 2017-01-02 03:15 | NUR ---
MS RN NOTES HAVING ANOTHER EPISODE OF SOB,HEART RATE 131,RR AT 3O TO 40'S,VERY UNSTABLE. GULSHAN LOCKWOOD DNP AWARE,OK TO TRANSFER TO TELEMETRY FOR FURTHER MONITORING.
--- NOTE | 2017-01-02 03:40 | NUR ---
MS WHITESIDE NOTES TRANSFERRED TO TELEMETRY BY BED AND O2 WITH NON REBREATHER MASK AT 5LITER,WILL GIVE REPORT TO STANLEY WHITESIDE FOR RENATO.
--- NOTE | 2017-01-02 04:00 | NUR ---
SEARCH CONSULTANTELECTRIC METER SETTER NOTES: RECEIVED 76 YO MALE PATIENT WHO WAS TRANSFERRED FROM [facility] AFTER HAVING SOB AFTER GOING TO THE BATHROOM. PATIENT ON O2 AT 4 LPM VIA NON REBREATHER MASK, WITH SOB AT RATE OF 26-28 PER MINUTE. NOTED EXPIRATORY WHEEZING UPON AUSCULTATION. PIV OVER RFA INTACT AND PATENT TO FLUSH. HOB ELEVATED. ORIENTED TO UNIT. PROVIDED FOR COMFORT AND SAFETY. ATTACHED TO TELE MONITOR, WITH SINUS TACHYCARDIA AT RATE OF 130S. WILL CONT TO MONITOR CLOSELY.
--- NOTE | 2017-01-02 04:30 | NUR ---
RN NOTES: DR LOCKWOOD PAGED TO INFORM OF PATIENT CONDITION ( SINUUS TACHY AT 130S- 140S, BP AT 167/89, RAPID RR AT 28.
--- NOTE | 2017-01-02 04:50 | NUR ---
RN NOTES: DR LOCKWOOD CALLED BACK, INFORMED MD RE PATIENT'S SINUS TACHY AT 130S -140S, AND BP AT 167/89. ORDER FOR METOPROLOL 50 MG PO ONCE STAT GIVEN. NOTED AND CARRIED OUT.
[2017-01-02] MEDS ORDERED: METOPROLOL TARTRATE 50 MG TABLET PO ONE (05:00)
--- NOTE | 2017-01-02 05:45 | NUR ---
PATIENT FOUND ON FLOOR BY DRY PRESS OPERATOR HELPER, LYING ON HIS SIDE, FACING TOWARDS THE DIRECTION OF THE DOOR AT RM 312. PATIENT IS UNRESPONSIVE, COLOR IS CYANOTIC, PATIENT HAS PULSE BUT BREATHING WAS GASPING/ AGONAL. CHECKED FOR ANY ACUTE GROSS INJURY, NO BLEEDING OR OPEN WOUND NOTED, TRANSFERRED PATIENT TO BED. RAPID RESPONSE CALLED.
--- NOTE | 2017-01-02 05:48 | NUR ---
BLOOD SUGAR CHECKED AT 53 MG/DL.
--- NOTE | 2017-01-02 05:50 | NUR ---
1 AMP D50 SOLUTION GIVEN IVP.
--- NOTE | 2017-01-02 05:56 | NUR ---
60 MG ROCURONIUM IV GIVEN TO PATIENT BY GARRETT CASTRO RN ORDERED BY DR LIVE.
--- NOTE | 2017-01-02 06:00 | NUR ---
RN NOTES: PATIENT INTUBATED WITH ETT 7.[address] LIVE.
--- NOTE | 2017-01-02 06:03 | NUR ---
RN NOTES: STAT CHEST XRAY TAKEN.
--- NOTE | 2017-01-02 06:10 | NUR ---
PATIENT TRANSFERRED TO ICU VIA ACLS PROTOCOL ACCOMPANIED BY RN. PATIENT INTUBATED.
--- NOTE | 2017-01-02 06:16 | NUR ---
RN NOTES: DR LOCKWOOD CALLED BACK, ORDERD FOR CT SCAN OF BRAIN WITHOUT CONTRAST, CTA OF CHEST TO R/O PE AND DIPRIVAN PRN.
--- NOTE | 2017-01-02 06:20 | NUR ---
INFORMED YOMI REGARDING INCIDENT THAT HAPPENED, AND THAT PATIENT WAS TRANSFERRED TO ICU. NICHOLAS, COMMUNITY HEALTH ADVISOR, TRANSLATED IN TURKM[place].
--- NOTE | 2017-01-02 06:23 | NUR ---
RT NOTE PT INTUBATED PER MD ORDER. 7.5 ETT 24 CM AT LIP. AC 14 550 100% +5. ALARMS SET PER PROTOCOL AND AUDIBLE. AMBU BAG AT BEDSIDE. VENT PLUGGED IN TO RED OUTLET. NO DISTRESS NOTED AT MOMENT. WILL CONTINUE TO MONITOR. Addendum: 01/02/17 at 0625 by JF EPSTEIN RT Amended: Links added.
[2017-01-02] MEDS ORDERED: PROPOFOL 100 ML IV ONE (06:24)
[2017-01-02] MEDS ORDERED: IV SET PRIMARY PUMP SET 1 EA INFUS.SET MC ONE ×4 (06:25→21:15)
[2017-01-02] MEDS: PROPOFOL 100 ML IV PRN ×2 (06:52→12:31)
--- NOTE | 2017-01-02 07:06 | NUR ---
PAY PER CLICK STRATEGIST PT WAS TRANSFERRED FROM [address] [place] [address] AFTER CODE BLUE. RESPIRATORY ARREST, STAT INTUBATION. PT WAS PLACED ON VENTILATOR AC MODE. VERY AGITATED, HYPERTENSIVE. STARTED PROPOFOL DRIP, TITRATED TO SEDATE PT. SOFT WRIST RESTRAINTS ON. PT IS HARD STICK-NEED MIDLINE INSERTION. PT IS SUPPOSED TO HAVE STAT CTA CHEST & CT BRAIN BECAUSE HE FELL DOWN IN [facility] BEFORE CODE BLUE WAS ACTIVATED. VSS, AFEBRILE, SCOPE-SR. GRANDDAUGHTER, WHO WORKS AT [employer] MED-FINISHING SUPERVISOR PLASTIC SHEETS WAS UPDATED OF PT CONDITION AND PLANS.REPORT GIVEN TO MAO DAY SHIFT RN.
[2017-01-02] MEDS ORDERED: IV NS 0.9% 1,000 ML IV PRN (07:15)
--- NOTE | 2017-01-02 07:30 | NUR ---
SOD FARMER NOTE: RECEIVED PATIENT S/P FALL AND RESPIRATORY FAILURE, INTUBATED ETT 7.5 24 CMS AT THE LIP ANCHOR FAST CHANGED, ETT STABILIZED ON VENT AC 14 TV 55 FIO2 100% AND PEEP OF 5. ORDER NOTED FOR ABG. PATIENT NOTED TO BE ALERT AND ORIENTED X3, ABLE TO MAKE NEEDS KNOWN. BILATERAL SOFT WRIST RESTRAINTS NOTED FOR PATIENT SAFETY PATIENT ATTEMPTS TO PULL ETT. SR ON TELE MONITOR. HR NOTED TO BE 100. PATIENT NOTED WITH TEMP OF 101.2, ICE PACKS UTILIZED TO IMPLEMENT COOLING MEASURES. MD MADE AWARE AND RECEIVED ORDERS FOR LOPEZ CULTURES PER MD. RFA 18G RUNNING DIPRIVAN AND WILL TITRATE TO MAKE PATIENT COMFORTABLE PER PROTOCOL. PATIENT ABLE TO MOVE ALL EXTREMITIES. SBP IN 90'S. UNABLE TO TURN AND REPOSITION AT THIS TIME. SAFETY MEASURES OBSERVED. ONGOING MONITORING. Addendum: 01/02/17 at 1435 by ANTONY SIMMONS RN ABDOMEN NOTED TO BE DISTENDED AND FIRM. DR. MARTINEZ AWARE. ONGOING MONITORING.
[2017-01-02] MEDS: ALBUTEROL HALF STRENGTH 1.25 MG/3 ML VIAL.NEB NEB SCH ×5 (07:35→19:25)
[2017-01-02] MEDS: ACETYLCYSTEINE 10% SOLN 400 MG/4 ML VIAL NEB SCH ×3 (07:45→23:33)
[2017-01-02] MEDS ORDERED: IV NS 0.9% 1,000 ML ONE (07:49)
--- NOTE | 2017-01-02 07:49 | NUR ---
WOUND CARE CONSULT: PT NOT STABLE TO BE TURNED FOR SKIN ASSESSMENT AT THIS TIME, S/P CODE BLUE. WILL SEE PT PT CONDITION PERMITS.
[2017-01-02 08:04] LABS: EOSINOPHILS % (AUTO) 0.2 % (0.0-6.0); HEMATOCRIT 37 % (39-51); HEMOGLOBIN 11.9 g/dL (13.5-17.5); LYMPHOCYTES # (AUTO) 0.6 /CMM (0.8-4.8); LYMPHOCYTES % (AUTO) 4.9 % (20.0-44.0); MEAN CORPUSCULAR HEMOGLOBIN 30 PG (26.0-33.0); MEAN CORPUSCULAR HGB CONC 32 g/dl (31.0-36.0); MEAN CORPUSCULAR VOLUME 94 fL (80-96); MONOCYTES # (AUTO) 0.8 /CMM (0.1-1.30); MONOCYTES % (AUTO) 6.8 % (2.0-12.0); NEUTROPHILS # (AUTO) 10.2 /CMM (1.8-8.9); NEUTROPHILS % (AUTO) 88.1 % (43.0-81.0); PLATELET COUNT (AUTO) 363 /CMM (150-450); RDW COEFFICIENT OF VARIATION 19.7 (11.5-15.0); RED BLOOD CELL COUNT(AUTO) 3.96 MIL/uL (4.5-6.0); WHITE BLOOD COUNT (AUTO) 11.6 K/uL (4.3-11.0)
[2017-01-02 08:06] LABS: ABG BASE EXCESS 2.2 mmol/L; ABG OXYGEN SATURATION 98.2 % (92.0-98.5); ABG PCO2 50.5 mmHg (35.0-45.0); ABG PH 7.367 (7.350-7.450); ABG TOTAL HEMOGLOBIN 12.3 G/dL (13.5-18.0); AaDO2 154.7 mmHg; COHb 0.8 % (0.5-1.5); MetHb 0.6 % (0.0-1.5); O2Hb 96.8 % (94.0-97.0); PEEP,BG 5 cm H2O; SITE, ABG Left Radial; VENT MODE, BG AC 14 550; VT, ABG 550 mL
[2017-01-02 08:22] LABS: CALCIUM, SERUM 8.2 mg/dL (8.5-10.1); CREATININE 1.2 mg/dL (0.6-1.3); POTASSIUM 4.9 mmol/L (3.5-5.1)
[2017-01-02 08:26] LABS: MAGNESIUM 2.1 mg/dL (1.8-2.4); PHOSPHORUS 3.1 mg/dL (2.5-4.9)
[2017-01-02 08:30] LABS: TROPONIN I 0.141 ng/mL (0.00-0.056)
[2017-01-02] MEDS ORDERED: ROCURONIUM BROMIDE 50 MG/5 ML IV ONE (08:35)
[2017-01-02] MEDS ORDERED: ETOMIDATE 2 MG/ML VIAL IV ONE (08:35)
[2017-01-02] MEDS: DOCUSATE SODIUM 100 MG CAPSULE PO SCH (09:00)
--- NOTE | 2017-01-02 09:00 | NUR ---
CROZE CUTTER HELPER NOTE: DR. MARTINEZ AT BEDSIDE, RECEIVED ORDERS FOR MEDINA CATHETER, RESTRAINTS, PICC LINE INSERTION AND CLARIFIED CT ORDERS AND WAS ORDERED TO TAKE PATIENT TO CTA OF CHEST ONLY WHEN PATIENT STABLE. ONGOING MONITORING
--- NOTE | 2017-01-02 09:40 | NUR ---
CASE LINER NOTE: DR. ESPARZA AT BEDSIDE, RECEIVED ORDERS TO TITRATE DOWN AND TURN OFF DIPRIVAN AND ONCE PATIENT IS AWAKE START SIMV TRIALS WITH RATE OF 4, PS 12 AND PEEP OF 5. ONCE PATIENT WAS AWAKE, SIMV TRIALS STARTED HOWEVER AFTER 20 MIN PATIENT NOTED WITH RR OF 45, IN RESPIRATORY DISTRESS, BREATHING SHALLOW AND LABORED. UPON DR. ESPARZA'S ASSESSMENT PLACED PATIENT BACK IN AC MODE BY RT. WILL RETRY WEANING TOMORROW.
--- NOTE | 2017-01-02 10:00 | NUR ---
MESSENGER COPY NOTE: PER ORDER OGTUBE PLACED FOR MEDICATION ADMINISTRATION. PATIENT TOLERATED WELL, PLACEMENT VERIFIED BY TWO RN'S. ONGOING MONITORING
[2017-01-02] MEDS: CLOPIDOGREL BISULFATE 75 MG TABLET PO SCH (10:24)
[2017-01-02] MEDS: CHOLECALCIFEROL (VITAMIN D 3) 400 UNIT TABLET PO SCH (10:24)
[2017-01-02] MEDS: methylPREDNISolone SOD SUCC 125 MG/2ML VIAL IV SCH (10:24)
[2017-01-02] MEDS: PANTOPRAZOLE 40 MG VIAL IV SCH (10:24)
[2017-01-02] MEDS: ENOXAPARIN SODIUM 40 MG/0.4 ML DISP.SYRIN SQ SCH (10:25)
--- NOTE | 2017-01-02 10:39 | NUR ---
CTA BRAIN IS ON HOLD PER . HE IS WORRIED ABOUT P.E. PT'S NURSE WILL LT US KNOW WHEN WE CAN DO CTA BRAIN.
[2017-01-02] MEDS ORDERED: CT SWABBABLE VALVE TRANS SET 1 EA INFUS.SET MC ONE (11:25)
[2017-01-02] MEDS ORDERED: IV NS 0.9% 250 ML IV ONE (11:25)
[2017-01-02] MEDS ORDERED: IOHEXOL-350 100 ML VIAL IV ONE (11:25)
--- NOTE | 2017-01-02 12:00 | NUR ---
LIBRARY HISTORIAN NOTE: PATIENT IN STABLE CONDITION, INTUBATED ON DIPRIVAN AT 30MCG/KG/MIN. VS STABLE. PATIENT TRANSPORTED TO CT FOR CTA OF CHEST TO R/O PE. PATIENT TOLERATED WELL. NO DISTRESS NOTED UPON TRANSPORT. ACLS PROTOCOL OBSERVED. PATIENT TRANSPORTED BACK TO ROOM, BED BATH GIVEN, PATIENT TURNED AND REPOSITIONED AND EXTREMITIES OFFLOADED. SKIN NOTED TO BE INTACT WITH GLUTEAL CREASE REDNESS, PHOTO TAKEN AND PLACED IN CHART. SAFETY MAINTAINED, ONGOING MONITORING.
--- NOTE | 2017-01-02 13:00 | NUR ---
EAR NOSE AND THROAT SPECIALIST NOTE: RECEIVED ORDER FOR MEDINA CATHETER, PER PATIENT'S REQUEST, CONDOM CATH PLACED HOWEVER ONLY 50ML OF OUTPUT NOTED. ABDOMEN NOTED TO BE DISTENDED. PER ORDER MEDINA CATHETER INSERTED, ASEPTIC TECHNIQUE OBSERVED. PATIENT NOTED WITH 400ML OF URINE OUTPUT. ONGOING MONITORING.
--- NOTE | 2017-01-02 13:34 | NUR ---
WOUND CARE CONSULT: PT PRESENTS WITH SLIGHT EXCORIATION TO GLUTEAL CREASE WHICH IS MOISTURE RELATED. RECOMMENDATIONS MADE FOR SKIN PROTECTION. DISCUSSED WITH NURSING STAFF. PT MOVES IN BED. ALL SKIN PROTECTION MEASURES IN PLACE. PT ON RENETTA COMFORT GEL MATTRESS. CHERY SCORE IS 18. WILL SEE PRN. FERNANDES IN AGREEMENT WITH PLAN OF CARE. Addendum: 01/02/17 at 1337 by TERRANCE STEWART WNDNU Amended: Links added.
--- NOTE | 2017-01-02 15:00 | NUR ---
GOVERNOR ASSEMBLER HYDRAULIC NOTE: PATIENT ON DIPRIVAN AT 35MCG/KG/HR AND PATIENT NOTED TO BE AWAKE AND CALM AND COOPERATIVE HOWEVER DOES HAVE PERIODS WHERE HE WANTS TO PULL THE ETT. BILATERAL SOFT WRIST RESTRAINTS IN PLACE. SKIN AND CIRCULATION CHECK DONE. SAFETY MEASURES OBSERVED. PATIENT C/O PAIN, MORPHINE ADMINISTERED PER ORDER FOR PAIN MANAGEMENT. ALL NEEDS MET, PATIENT KEPT CLEAN AND DRY AND TURNED AND REPOSITIONED, EXTREMITIES OFFLOADED. ONGOING MONITORING.
--- NOTE | 2017-01-02 16:00 | NUR ---
ORTHO RN NOTE: PATIENT BP NOTED TO BE IN 60'S, LOW 70S FOR 15 MINUTES. PATIENT NOTED TO BE RESPONSIVE TO STIMULI AND ALERT AND ORIENTED. CALL MADE TO DR. MARTINEZ AND INFORMED OF PATIENT'S CONDITION. RECEIVED ORDERS TO BOLUS PATIENT WITH IVF NS 500ML AND IF NOT RESPONSIVE TO BOLUS START LEVOPHED SINGLE CONCENTRATION. INFORMED THAT BS NOTED TO BE 75, IVF CHANGED TO D5NS AT 100ML/HR. ALSO RECEIVED ORDER TO D/C LEVAQUIN AND START PATIENT ON VANCO PER PHARMACY TO DOSE AND ZOSYN 4.5G, ORDERS READ BACK AND VERIFIED. WILL CARRY OUT.
[2017-01-02] MEDS ORDERED: IV NS 0.9% 500 ML IV ONE ×3 (16:11→17:00)
--- NOTE | 2017-01-02 16:20 | NUR ---
MANAGER INTEGRATED NOTE: DR. ESPARZA AT BEDSIDE, RECEIVED ORDER FOR ANOTHER 500ML BOLUS BEFORE STARTING LEVOPHED. ONGOING MONITORING.
[2017-01-02] MEDS ORDERED: FEE PK DOSING 1 MIN EA MC ONE (16:26)
[2017-01-02] MEDS ORDERED: NOREPINEPHRINE 8 MG in IV D5W 500 ML IV PRN (16:30)
--- NOTE | 2017-01-02 16:30 | NUR ---
OVERCOILER NOTE: PATIENT NOTED TO BE RESPONSIVE TO 500ML NS BOLUS. BP NOTED TO BE 90/50, PER ORDER WILL BOLUS ANOTHER 500ML OF NS. ONGOING MONITORING.
[2017-01-02] MEDS: IV D5/ 0.9% NACL 1,000 ML IV PRN (16:41)
[2017-01-02] MEDS: DOCUSATE SODIUM LIQ 100 MG/10 ML UDC NG SCH (16:41)
[2017-01-02] MEDS: VANCOMYCIN 1 GM in IV D5W 250 ML IV SCH (16:58)
[2017-01-02] MEDS ORDERED: PIPERACILLIN /TAZOBACTAM 4.5 G in IV D5W 50 ML IV SCH (17:00)
[2017-01-02] MEDS: PIPERACILLIN /TAZOBACTAM 4.5 G in IV D5W 50 ML IV SCH (17:01)
[2017-01-02] MEDS ORDERED: SECONDARY IV SET 1 EA INFUS.SET MC ONE (17:14)
--- NOTE | 2017-01-02 18:27 | NUR ---
RT END OF THE SHIFT REPORT: PT. 76 Y OLD MALE REMAIN ORALLY INTUBATED ETT # 7.5 @ 24 CM LIP LINE ON VENT WITH NOTED AC SETTINGS, PT. PLACED ON SIMV MODE THIS MORNING AND NOT RUBINA. WELL PER AGITATION TACHYPNEA AND PLACED ON AC MODE PER DR. ESPARZA ORDER ON BEDSIDE. NO CHANGES AFTER PT. REMAIN STABLE. B/S CLEAR BILATERALLY, EQUAL CHEST RISE NOTED, BACON STRINGER DONE HME XCHANGED SUX'D FOR MINIMAL WHITE THICK SECRETIONS, CONTINUE MONITOR. AMBU BAG REMAIN AT THE BEDSIDE. AND VENT PLUGGED INTO RED OUTLET. REPORT WILL BE PASS TO PM SHIFT. Addendum: 01/02/17 at 1829 by ROMA BENJAMIN RT Amended: Links added.
--- NOTE | 2017-01-02 18:43 | NUR ---
LENS DOTTER NOTE: PATIENT REMAINS ALERT AND ORIENTED X3, OFF DIPRIVAN, INTUBATED AND ON VENT TOLERATING SETTINGS WELL. PATIENT ABLE TO FOLLOW COMMANDS HOWEVER BILATERAL SOFT WRIST RESTRAINTS IN PLACE FOR PATIENTS SAFETY. MCKAYLA PICC LINE RUNNING D5NS @ 100ML/HR. RFA 18G HEPLOCK PATENT AND INTACT. PATIENT NOTED TO BE SR ON TELE MONITOR. OGTUBE IN PLACE, CLAMPED. MEDINA DRAINING CLEAR YELLOW URINE TO GRAVITY. PATIENT NOTED WITH SACRAL/GLUTEAL EXCORIATION, KEPT CLEAN AND DRY, TURNED AND REPOSITIONED AND EXTREMITIES OFFLOADED. SKIN CARE RENDERED, ZGUARD IN PLACE. CURRENTLY VS STABLE AND CURRENTLY AFEBRILE. HOWEVER PATIENT DOES HAVE ORDER FOR LEVOPHED IF SBP MAINTAINS< 90. CTA OF CHEST NOTED TO BE NEGATIVE FOR PE. MORPHINE ADMINISTERED ORDERED FOR PAIN MANAGEMENT. THOROUGH EDUCATION PROVIDED TO PATIENT AND FAMILY REGARDING PLAN OF CARE AND TREATMENT. SAFETY MAINTAINED THROUGHOUT SHIFT. CALL LIGHT PLACED WITHIN REACH. WILL ENDORSE PATIENT FOR CONTINUITY OF CARE.
--- NOTE | 2017-01-02 20:00 | NUR ---
ICU/RN RECEIVED PT ON VENT VIA ORAL ETT,CALM AND COOPERATIVE.DENIES PAIN OR DISCOMFORT.LOW BP,WILL MONITOR CLOSELY.
--- NOTE | 2017-01-02 21:20 | NUR ---
ICU/RN STARTED ON LEVOPHED DRIP AT 2MC/MIN FOR SBP OF 83MMHG.SEE DATASCOPE.
[2017-01-03] VITALS (58 sets, daily range): BP systolic 104–142; BP diastolic 47–75
[2017-01-03] MEDS: PIPERACILLIN /TAZOBACTAM 4.5 G in IV D5W 50 ML IV SCH ×5 (00:33→21:25)
[2017-01-03] MEDS: ALBUTEROL FS 2.5 MG/0.5 ML VIAL.NEB NEB SCH ×6 (03:17→23:49)
[2017-01-03] MEDS: IPRATROPIUM NEB FS 0.5 MG/2.5 ML AMPUL.NEB NEB SCH ×6 (03:17→23:49)
[2017-01-03 04:42] LABS: BASOPHILS % (AUTO) 0.1 % (0.0-2.0); EOSINOPHILS % (AUTO) 0.3 % (0.0-6.0); HEMATOCRIT 32 % (39-51); HEMOGLOBIN 10.4 g/dL (13.5-17.5); LYMPHOCYTES # (AUTO) 0.6 /CMM (0.8-4.8); LYMPHOCYTES % (AUTO) 6.3 % (20.0-44.0); MEAN CORPUSCULAR HEMOGLOBIN 30 PG (26.0-33.0); MEAN CORPUSCULAR HGB CONC 32 g/dl (31.0-36.0); MEAN CORPUSCULAR VOLUME 94 fL (80-96); MONOCYTES # (AUTO) 0.6 /CMM (0.1-1.30); MONOCYTES % (AUTO) 5.5 % (2.0-12.0); NEUTROPHILS % (AUTO) 87.8 % (43.0-81.0); PLATELET COUNT (AUTO) 299 /CMM (150-450); RDW COEFFICIENT OF VARIATION 19.4 (11.5-15.0); RED BLOOD CELL COUNT(AUTO) 3.42 MIL/uL (4.5-6.0); WHITE BLOOD COUNT (AUTO) 10.2 K/uL (4.3-11.0)
[2017-01-03 04:51] LABS: ALBUMIN 2.1 g/dL (3.4-5.0); BILIRUBIN,TOTAL 0.9 mg/dL (0.2-1.0); CALCIUM, SERUM 7.1 mg/dL (8.5-10.1); MAGNESIUM 1.8 mg/dL (1.8-2.4); PHOSPHORUS 2.9 mg/dL (2.5-4.9); POTASSIUM 4.2 mmol/L (3.5-5.1); TOTAL PROTEIN, SERUM 5.2 g/dL (6.4-8.2)
[2017-01-03 04:55] LABS: TROPONIN I 0.034 ng/mL (0.00-0.056)
[2017-01-03] MEDS: VANCOMYCIN 1 GM in IV D5W 250 ML IV SCH ×2 (05:24→17:42)
[2017-01-03] MEDS: IV D5/ 0.9% NACL 1,000 ML IV PRN ×2 (05:35→17:42)
--- NOTE | 2017-01-03 06:00 | NUR ---
ICU/RN MONITOR SHOWS SB-SR.DENIES PAIN OR DISCOMFORT.MINIMAL SECRETIONS FR ETT.REMAINS ON LEVOPHED DRIP AT 1MCG/MIN W/STABLE BP,110'S-120'S
[2017-01-03] MEDS: ACETYLCYSTEINE 10% SOLN 400 MG/4 ML VIAL NEB SCH ×3 (08:39→23:49)
[2017-01-03] MEDS ORDERED: DC PROPOFOL WHEN EXTUBATED XX PRN (09:00)
[2017-01-03] MEDS: CHOLECALCIFEROL (VITAMIN D 3) 400 UNIT TABLET PO SCH (09:47)
[2017-01-03] MEDS: methylPREDNISolone SOD SUCC 125 MG/2ML VIAL IV SCH (09:47)
[2017-01-03] MEDS: DOCUSATE SODIUM LIQ 100 MG/10 ML UDC NG SCH ×2 (09:47→17:42)
[2017-01-03] MEDS: CLOPIDOGREL BISULFATE 75 MG TABLET PO SCH (09:47)
[2017-01-03] MEDS: PANTOPRAZOLE 40 MG VIAL IV SCH (09:50)
[2017-01-03] MEDS: ENOXAPARIN SODIUM 40 MG/0.4 ML DISP.SYRIN SQ SCH (09:50)
[2017-01-03 10:07] LABS: ABG BASE EXCESS 1.7 mmol/L; ABG OXYGEN SATURATION 97.6 % (92.0-98.5); ABG PCO2 36.8 mmHg (35.0-45.0); ABG PH 7.457 (7.350-7.450); ABG PO2 108.1 mmHg (75.0-100.0); ABG TOTAL HEMOGLOBIN 11.4 G/dL (13.5-18.0); AaDO2 134.8 mmHg; COHb 0.6 % (0.5-1.5); MetHb 0.7 % (0.0-1.5); O2Hb 96.3 % (94.0-97.0); PEEP,BG 5 cm H2O; SITE, ABG Right Radial; VENT MODE, BG SIMV 4 PSV 12
--- NOTE | 2017-01-03 10:15 | NUR ---
PT EXTUBATED PER MD ORDER. ZERO DISTRESS NOTED. PT ABLE TO CLEAR AIRWAY. B/S EQUAL . PLACED ON 6LPM N/C
--- NOTE | 2017-01-03 10:20 | NUR ---
PT EXTUBATED AT 1015. NOW OB 6L NC. VSS. DENIES PAIN, DENIES SOB.
--- NOTE | 2017-01-03 19:20 | NUR ---
ICU/RN. RECEIVED PT AWAKE ALERT OX3.DENIES PAIN OR DISCOMFORT.SAT.95% ON 6LPM
[2017-01-04] VITALS (26 sets, daily range): BP systolic 97–145; BP diastolic 51–76
[2017-01-04] MEDS: PIPERACILLIN /TAZOBACTAM 4.5 G in IV D5W 50 ML IV SCH ×4 (03:13→21:39)
[2017-01-04] MEDS: ALBUTEROL FS 2.5 MG/0.5 ML VIAL.NEB NEB SCH ×6 (03:49→23:04)
[2017-01-04] MEDS: IPRATROPIUM NEB FS 0.5 MG/2.5 ML AMPUL.NEB NEB SCH ×6 (03:49→23:04)
[2017-01-04] MEDS: IV D5/ 0.9% NACL 1,000 ML IV PRN (04:11)
[2017-01-04 04:34] LABS: EOSINOPHILS % (AUTO) 0.2 % (0.0-6.0); HEMATOCRIT 31 % (39-51); HEMOGLOBIN 9.7 g/dL (13.5-17.5); LYMPHOCYTES # (AUTO) 0.6 /CMM (0.8-4.8); LYMPHOCYTES % (AUTO) 6.2 % (20.0-44.0); MEAN CORPUSCULAR HEMOGLOBIN 30 PG (26.0-33.0); MEAN CORPUSCULAR HGB CONC 32 g/dl (31.0-36.0); MEAN CORPUSCULAR VOLUME 94 fL (80-96); MONOCYTES # (AUTO) 0.5 /CMM (0.1-1.30); MONOCYTES % (AUTO) 4.9 % (2.0-12.0); NEUTROPHILS # (AUTO) 8.3 /CMM (1.8-8.9); NEUTROPHILS % (AUTO) 88.7 % (43.0-81.0); PLATELET COUNT (AUTO) 254 /CMM (150-450); RDW COEFFICIENT OF VARIATION 19.2 (11.5-15.0); RED BLOOD CELL COUNT(AUTO) 3.27 MIL/uL (4.5-6.0); WHITE BLOOD COUNT (AUTO) 9.4 K/uL (4.3-11.0)
[2017-01-04 04:44] LABS: CALCIUM, SERUM 7.2 mg/dL (8.5-10.1); CREATININE 0.9 mg/dL (0.6-1.3); MAGNESIUM 1.8 mg/dL (1.8-2.4); PHOSPHORUS 1.9 mg/dL (2.5-4.9); POTASSIUM 3.7 mmol/L (3.5-5.1)
[2017-01-04] MEDS: VANCOMYCIN 1 GM in IV D5W 250 ML IV SCH ×2 (05:05→16:30)
[2017-01-04] MEDS: ACETYLCYSTEINE 10% SOLN 400 MG/4 ML VIAL NEB SCH ×3 (07:40→23:04)
[2017-01-04] MEDS: ENOXAPARIN SODIUM 40 MG/0.4 ML DISP.SYRIN SQ SCH (09:38)
[2017-01-04] MEDS: methylPREDNISolone SOD SUCC 125 MG/2ML VIAL IV SCH (09:39)
[2017-01-04] MEDS: CHOLECALCIFEROL (VITAMIN D 3) 400 UNIT TABLET PO SCH (09:39)
[2017-01-04] MEDS: DOCUSATE SODIUM LIQ 100 MG/10 ML UDC NG SCH ×2 (09:39→16:30)
[2017-01-04] MEDS: CLOPIDOGREL BISULFATE 75 MG TABLET PO SCH (09:39)
[2017-01-04] MEDS: PANTOPRAZOLE 40 MG VIAL IV SCH (09:39)
[2017-01-04] MEDS ORDERED: NEUTRA PHOS 1 POWD.PACKET PO ONE (14:00)
[2017-01-04] MEDS: MAGNESIUM HYDROXIDE 30 ML UDC PO PRN (15:12)
--- NOTE | 2017-01-04 17:00 | NUR ---
Pt assisted with bed bath, shave. Able to sit at the side of the bed for dinner. Family at bedside updated on progress.
--- NOTE | 2017-01-04 20:00 | NUR ---
received pt from day shift, a/o x4, follows commands, SR, on 4L 02 sat well, lungs partially congested, no edema, f/c good output, tolerates diet, v/s stable, no pain, pt turns and repositions by himself.
[2017-01-05] VITALS (10 sets, daily range): BP systolic 105–151; BP diastolic 56–79
--- NOTE | 2017-01-05 00:36 | NUR ---
pt is resting in the bed, v/s stable, no pain.
[2017-01-05] MEDS: HYDROCODONE/APAP 5/325MG 1 EACH TABLET PO PRN (01:02)
[2017-01-05] MEDS ORDERED: IV NS 0.9% 250 ML IV ONE ×2 (01:42→08:47)
[2017-01-05] MEDS: PIPERACILLIN /TAZOBACTAM 4.5 G in IV D5W 50 ML IV SCH ×4 (02:46→21:48)
[2017-01-05] MEDS: IPRATROPIUM NEB FS 0.5 MG/2.5 ML AMPUL.NEB NEB SCH ×6 (03:34→23:00)
[2017-01-05] MEDS: ALBUTEROL FS 2.5 MG/0.5 ML VIAL.NEB NEB SCH ×6 (03:34→23:00)
--- NOTE | 2017-01-05 04:38 | NUR ---
pt is resting in the bed, no acute distress overnight, v/s stable, no pain, pt cleaned and changed.
[2017-01-05] MEDS: VANCOMYCIN 1 GM in IV D5W 250 ML IV SCH ×2 (04:42→16:01)
[2017-01-05 05:07] LABS: CALCIUM, SERUM 7.7 mg/dL (8.5-10.1); CREATININE 0.9 mg/dL (0.6-1.3); PHOSPHORUS 1.7 mg/dL (2.5-4.9); POTASSIUM 4.2 mmol/L (3.5-5.1)
--- NOTE | 2017-01-05 05:44 | NUR ---
SPOKE WITH PT WHO IS CURRENTLY AWAKE AND RECEIVING HIS BREATHING TREATMENT, EXPLAINED TO PT THAT HE HAS BEEN DOWN GRADED, CLEARED TO GO TO A TELEMETRY UNIT PER MD. PT WAS GIVEN AN OPTION WHICH FLOOR BETWEEN 3RD WEST & 1ST FLOOR. PT HAD CHOSEN TO GO TO 1ST FLOOR HIMSELF. PT WAS VERY PLEASANT . PRIMARY RN WHO ALSO SPEAKS ICELANDIC TRANSLATED FOR CLARIFICATION PURPOSES. ADVISED PT TO LET ME KNOW OR OTHER STAFF IF THERE IS ANY CONCERNS OR QUESTIONS.
--- NOTE | 2017-01-05 06:17 | NUR ---
pt [facility], [facility] followed, v/s stable, no pain.
--- NOTE | 2017-01-05 07:00 | NUR ---
received pt in bed.breathing on 4lpm via N/C.no c/o pain,no sob,bartenders s/s of distress.I.V site cdi and patent.f/c cdi and patent.safety measures in place.bed in low and locked position.will continue to monitor for changes.
[2017-01-05] MEDS: ACETYLCYSTEINE 10% SOLN 400 MG/4 ML VIAL NEB SCH ×4 (07:35→23:00)
[2017-01-05] MEDS ORDERED: IV SET PRIMARY PUMP SET 1 EA INFUS.SET MC ONE (08:47)
[2017-01-05] MEDS ORDERED: SECONDARY IV SET 1 EA INFUS.SET MC ONE ×2 (08:47→15:51)
[2017-01-05] MEDS: CHOLECALCIFEROL (VITAMIN D 3) 400 UNIT TABLET PO SCH (08:53)
[2017-01-05] MEDS: methylPREDNISolone SOD SUCC 125 MG/2ML VIAL IV SCH (08:55)
[2017-01-05] MEDS: ENOXAPARIN SODIUM 40 MG/0.4 ML DISP.SYRIN SQ SCH (08:55)
[2017-01-05] MEDS: CLOPIDOGREL BISULFATE 75 MG TABLET PO SCH (08:55)
[2017-01-05] MEDS: DOCUSATE SODIUM LIQ 100 MG/10 ML UDC NG SCH ×2 (08:55→16:01)
[2017-01-05] MEDS: PANTOPRAZOLE 40 MG VIAL IV SCH (08:56)
[2017-01-05] MEDS ORDERED: NEUTRA PHOS 1 POWD.PACKET PO ONE (17:30)
--- NOTE | 2017-01-05 19:20 | NUR ---
RN INITIAL NOTE RECEIVED PT IN NO ACUTE DISTRESS IN BED. PT IS A/O X 3 AND ABLE TO MAKE NEEDS KNOWN. PT IS ARMEANIAN SPEAKING. PT IS ON O2 VIA NC @ 4LPM AND TOLERATING WELL WITH O2 SAT @ 98%. PT IS NOT C/O ANY SOB, DIFFICULTY BREATHING OR PAIN AT THIS TIME. PT HAS F/C THAT IS CLEAN DRY INTACT AND PATENT WITH CLEAR YELLOW URINE DRAINING. PT HAS MCKAYLA PICC LINE THAT IS CLEAN DRY INTACT AND PATENT WITH NS@ TKO. BED IN LOW LOCK POSITION WITH RAILS UP X 2. CALL LIGHT WITHIN REACH AND ALL SAFETY MEASURE ENSURED AND CARRIED OUT. WILL CONTINUE TO MONITOR PT.
[2017-01-06] MEDS: PIPERACILLIN /TAZOBACTAM 4.5 G in IV D5W 50 ML IV SCH ×2 (03:11→08:55)
[2017-01-06] MEDS: ALBUTEROL FS 2.5 MG/0.5 ML VIAL.NEB NEB SCH ×4 (03:49→15:12)
[2017-01-06] MEDS: IPRATROPIUM NEB FS 0.5 MG/2.5 ML AMPUL.NEB NEB SCH ×4 (03:50→15:12)
[2017-01-06 04:00] VITALS: BP 108/53
[2017-01-06] MEDS ORDERED: IV NS 0.9% 250 ML IV ONE (05:30)
[2017-01-06] MEDS: VANCOMYCIN 1 GM in IV D5W 250 ML IV SCH (05:35)
--- NOTE | 2017-01-06 06:32 | NUR ---
RN CLOSING NOTE PT REMAINS IN NO ACUTE DISTRESS IN BED. PT DID NOT HAVE ANY SIGNIFICANT CHANGE IN CONDITION DURING SHIFT. ALL NEEDS MET, ALL ORDERS CARRIED OUT. WILL ENDORSE TO AM RN FOR CONTINUITY OF CARE.
[2017-01-06 07:27] LABS: CALCIUM, SERUM 7.9 mg/dL (8.5-10.1); PHOSPHORUS 2.2 mg/dL (2.5-4.9); POTASSIUM 3.7 mmol/L (3.5-5.1)
[2017-01-06] MEDS: ACETYLCYSTEINE 10% SOLN 400 MG/4 ML VIAL NEB SCH ×2 (07:45→15:12)
[2017-01-06 08:00] VITALS: BP 121/61
--- NOTE | 2017-01-06 08:00 | NUR ---
MS1/RN AM SHIFT INITIAL NOTES RECEIVED PT AWAKE SITTING IN BED, NO ACUTE RESPIRATORY DISTRESS NOTED. PT A/O X 3, DANISH SPEAKING ONLY, DENIES ANY SOB. ON 4L O2 VIA N/C SATURATING @ 98%. PICC LINE PATENT WITH NO S/S OF INFECTION ON TKO. MEDINA CATHETER INTACT NOTED WITH YELLOW URINE OUTPUT. PT IS COMFORTABLE AT THIS TIME. SCHEDULED AM MEDS TO BE GIVEN. CL WITHIN REACHED AND SAFETY MAINTAINED. ON GOING MONITORING.
[2017-01-06] MEDS: PANTOPRAZOLE 40 MG VIAL IV SCH (08:55)
[2017-01-06] MEDS: CLOPIDOGREL BISULFATE 75 MG TABLET PO SCH (08:56)
[2017-01-06] MEDS: CHOLECALCIFEROL (VITAMIN D 3) 400 UNIT TABLET PO SCH (08:56)
[2017-01-06] MEDS: DOCUSATE SODIUM LIQ 100 MG/10 ML UDC NG SCH ×2 (08:58→17:21)
[2017-01-06] MEDS: ENOXAPARIN SODIUM 40 MG/0.4 ML DISP.SYRIN SQ SCH (08:59)
[2017-01-06] MEDS ORDERED: predniSONE 20 MG TABLET PO SCH (09:00)
--- NOTE | 2017-01-06 12:00 | NUR ---
MS1/RN NOON ROUNDS NO CHANGE OF CONDITION. ON GOING MONITORING.
[2017-01-06] MEDS ORDERED: CLOP75TA2 PO (12:21)
[2017-01-06] MEDS ORDERED: ENOX40DI SQ (12:21)
[2017-01-06] MEDS ORDERED: ALBU2.5V13 NEB (12:21)
[2017-01-06] MEDS ORDERED: PRED20TA PO (12:21)
[2017-01-06] MEDS ORDERED: DOCU50LI NG (12:21)
[2017-01-06] MEDS ORDERED: CHOL400T11 PO (12:21)
[2017-01-06] MEDS ORDERED: ACET1OOV6 NEB (12:21)
[2017-01-06] MEDS ORDERED: Ipratropium Bromide NEB (12:21)
[2017-01-06] MEDS ORDERED: ACET325T53 PO (12:21)
[2017-01-06] MEDS ORDERED: HYDR-3326 PO (12:21)
[2017-01-06] MEDS ORDERED: NEUTRA PHOS 1 POWD.PACKET NG ONE (13:30)
[2017-01-06 16:00] VITALS: BP 127/77
--- NOTE | 2017-01-06 17:00 | NUR ---
MS1/LENS [facility] FAXED MED RECON TO [facility] PER INSTRUCTION OF [employer] SCIENT[employer]. PT WILL GO HOME FOR HOSPICE CARE. [facility] [phone] PHONE [phone] FAX
--- NOTE | 2017-01-06 19:30 | NUR ---
MS1/RN ENDORSED - D/C HOME NO ACUTE CHANGE OF CONDITION NOTED DURING THE SHIFT. PT ENDORSED TO PM NURSE TO DISCHARGE TO HOME.
--- NOTE | 2017-01-06 19:38 | NUR ---
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 BELONGINGS CHECKED AND SIGNED OFF. EMS TRANSPORT AT BEDSIDE TO SETUP OPERATOR PT. REPORT GIVEN TO EMS. VSS AFEBRILE. WILL CONTINUE TO MONITOR.
[2017-01-06 19:41] VITALS: BP 126/73
--- NOTE | 2017-01-06 19:42 | NUR ---
MS-1/MARY PT OFF THE FLOOR WITH EMS TRANSPORT TO HOME WITH HOSPICE.
== END 2017-01-06 19:56 | disposition hospice, home (50) | DRG 208 ==
LOC: ER 10:40 → ICU 14:28 → MEDSG2 12-30 15:35 → TELE 01-02 03:40 → ICU 01-02 06:19 → TELE-TD 01-05 06:08 → TELE1 01-05 06:36 → MEDSG1 01-05 15:48
PROVIDERS: ADMIT Internal Medicine; ATTEND Internal Medicine
PROC: 5A09357 Assistance with Respiratory Ventilation, Less than 24 Consecutive Hours, Continuous Positive Airway Pressure (ICD-10-PCS; principal; 2016-12-28)
PROC: 5A1945Z Respiratory Ventilation, 24-96 Consecutive Hours (ICD-10-PCS; 2017-01-02)
PROC: 0BH17EZ Insertion of Endotracheal Airway into Trachea, Via Natural or Artificial Opening (ICD-10-PCS; 2017-01-02)
PROC: 02HV33Z Insertion of Infusion Device into Superior Vena Cava, Percutaneous Approach (ICD-10-PCS; 2017-01-02)
PROC: B548ZZA Ultrasonography of Superior Vena Cava, Guidance (ICD-10-PCS; 2017-01-02)
DX: J96.01 Acute respiratory failure with hypoxia (principal); J15.9 Unspecified bacterial pneumonia; I50.33 Acute on chronic diastolic (congestive) heart failure; I21.4 Non-ST elevation (NSTEMI) myocardial infarction; J44.1 Chronic obstructive pulmonary disease with (acute) exacerbation; E87.2 Acidosis; C34.90 Malignant neoplasm of unspecified part of unspecified bronchus or lung; E44.0 Moderate protein-calorie malnutrition; J44.0 Chronic obstructive pulmonary disease with (acute) lower respiratory infection; J98.11 Atelectasis; M84.48XA Pathological fracture, other site, initial encounter for fracture; J96.02 Acute respiratory failure with hypercapnia; E86.0 Dehydration; Z85.118 Personal history of other malignant neoplasm of bronchus and lung; I10 Essential (primary) hypertension; Z87.891 Personal history of nicotine dependence; I25.10 Atherosclerotic heart disease of native coronary artery without angina pectoris; E78.5 Hyperlipidemia, unspecified; D63.8 Anemia in other chronic diseases classified elsewhere; Z68.22 Body mass index [BMI] 22.0-22.9, adult; E83.39 Other disorders of phosphorus metabolism; E16.2 Hypoglycemia, unspecified; J40 Bronchitis, not specified as acute or chronic; R09.2 Respiratory arrest
CPT/HCPCS: 36415; 36569; 36600; 71010-TC; 80048-TC; 80053-TC; 80061-TC; 80076-TC; 80202-TC; 81000-TC; 82746; 82962-TC; 83540-TC; 83605-TC; 83735-TC; 83880; 84100-TC; 84439-TC; 84443-TC; 84484-TC; 85025-TC; 85045-TC; 85610-TC; 85652-TC; 85730-TC; 87040-TC; 87070-TC; 87081-TC; 87086-TC; 92611-TC; 93307-TC; 94003-TC; 94760-TC; 94799-TC; 97001-TC; 97116-TC; 97530-TC; 99082-TC; A4349; A4606; C1751; C9113; J1650; J1940; J1956; J2250; J2270; J2543; J2930; J3370; J3475; J3490; J7030; J7040; J7042; J7050; J7060; Q9967; Z7610